=== PATIENT | male | born 1950 | race Asian ===

== ENCOUNTER → 2017-11-28 | Outpatient (CLI) | payer SELFPAY ==
[~2017-11-28] MED LIST: DILAUDID2 MG ORAL; NKM; NORCO 10-325 T1 EACH ORAL
--- NOTE | 2017-11-28 16:48 | Diagnostic Imaging Report ---
Indication: Difficulty swallowing. Comparison: None Findings: Biphasic esophagram was performed. Images of the of the pharyngeal aspect of the esophagus show no aspiration. There is a 3 level cervical fusion incidentally noted. The esophagus distends normally. No abnormalities of the mucosa identified. No stricture or mass identified. Peristalsis was mildly impaired. IMPRESSION: Impaired peristalsis and motility of the esophagus.
== END | disposition home or self-care (01) ==
LOC: RAD 08:50
DX: R13.10 Dysphagia, unspecified (principal); Z98.1 Arthrodesis status; R19.2 Visible peristalsis
CPT/HCPCS: 74220